=== PATIENT | male | born 1985 | race Caucasian/White ===

== ENCOUNTER 2025-04-17 01:18 | Emergency (ER) | payer MEDICAID, OTHER ==
[~2025-04-17] VITALS: Ht 177.8 cm; Wt 123.9 kg
[2025-04-17 01:39] VITALS: O2SAT 96
[2025-04-17 02:45] LABS: CLARITY URINE CLEAR (CLEAR); COLOR URINE YELLOW (YELLOW); GLUCOSE URINE NEGATIVE (NEGATIVE); KETONES URINE TRACE (NEGATIVE); LEUKOCYTE ESTERASE URINE NEGATIVE (NEGATIVE); NITRITE URINE NEGATIVE (NEGATIVE); OCCULT BLOOD URINE NEGATIVE (NEGATIVE); PH URINE 5.5 (4.5-8.0); PROTEIN URINE NEGATIVE (NEGATIVE); SPECIFIC GRAVITY URINE 1.010 (1.005-1.030); UROBILINOGEN URINE 0.2 E.U./dL (0.2-1.0)
[2025-04-17 02:53] LABS: *AMPHETAMINES SCREEN URINE NEGATIVE (NEGATIVE); *BARBITURATES SCREEN URINE NEGATIVE (NEGATIVE); *BENZODIAZEPINES SCREEN URINE PRESUMPTIVE POSITIVE (NEGATIVE); *COCAINE SCREEN URINE NEGATIVE (NEGATIVE); CANNABINOID URINE SCREEN PRESUMPTIVE POSITIVE (NEGATIVE); ECSTASY MDMA SCREEN URINE NEGATIVE (NEGATIVE); METHADONE URINE SCREEN NEGATIVE (NEGATIVE); OPIATES URINE SCREEN NEGATIVE (NEGATIVE); PHENCYCLIDINE URINE SCREEN NEGATIVE (NEGATIVE)
[2025-04-17 04:52] LABS: BASOPHILS % 1.8 % (0.0-2.0); EOSINOPHILS % 4.6 % (0.0-5.0); HEMATOCRIT. 36.5 % (42.0-52.0); HEMOGLOBIN. 12.3 g/dL (14.0-18.0); LYMPHOCYTES % 36.4 % (20.0-50.0); MEAN PLATELET VOLUME 7.7 fl (7.4-10.4); MONOCYTES % 10.6 % (2.0-8.0); NEUTROPHILS % 46.6 % (40.0-76.0); PLATELET 362 x1000/uL (130-400); RED BLOOD CELL COUNT 4.75 mill/uL (4.7-6.1); RED CELL DISTRIBUTION WIDTH 18.4 % (11.6-14.6)
[2025-04-17 05:07] LABS: CREATININE 1.0 mg/dL (0.6-1.3); UREA NITROGEN BLOOD 8 mg/dL (9-23)
[2025-04-17 05:08] LABS: ETHANOL BLOOD 277 mg/dL (<10)
[2025-04-17] MEDS: ONDANSETRON 4MG ODT PO ONE (08:50)
[2025-04-17 08:59] LABS: ASPARTATE AMINOTRANSFERASE 85 IU/L (<34); BILIRUBIN DIRECT < 0.1 mg/dL (<=3.0)
[2025-04-17 09:00] LABS: BILIRUBIN TOTAL 0.2 mg/dL (0.1-1.0); PROTEIN TOTAL 7.4 g/dL (6.0-8.3)
[2025-04-17] MEDS ORDERED: HYDROXYZINE 25MG TABLET PO PRN (09:00)
[2025-04-17] MEDS: LEVETIRACETAM 500MG TABLET PO SCH (09:03)
[2025-04-17] MEDS: OLANZAPINE 5MG TABLET PO SCH (09:03)
[2025-04-17] MEDS: IBUPROFEN 400MG TABLET PO ONE (14:45)
[2025-04-17] MEDS: TRAZODONE HCL 50MG TABLET PO SCH (21:54)
[2025-04-18] MEDS: ACETAMINOPHEN 325MG TABLET PO ONE ×2 (06:25→22:13)
[2025-04-19] MEDS: POTASSIUM CHLORIDE 20MEQ/PACKET PO ONE (00:25)
[2025-04-19 01:24] VITALS: BP 154/93; PULSE 74; RESP 20; TEMP 36.6; O2SAT 97
[2025-04-28] MEDS ORDERED: KEPP (12:06)
[2025-04-28] MEDS ORDERED: KEPP250 PO (12:06)
[2025-04-30] MEDS ORDERED: AMLO5TAB88 PO (14:54)
[2025-04-30] MEDS ORDERED: CHLO25CA11 MT (14:54)
== END 2025-04-19 01:50 ==
LOC: ER 01:18
DX: R45.851 Suicidal ideations (principal); F10.129 Alcohol abuse with intoxication, unspecified; F32.A Depression, unspecified; F25.9 Schizoaffective disorder, unspecified; E11.9 Type 2 diabetes mellitus without complications; I10 Essential (primary) hypertension; Z09 Encounter for follow-up examination after completed treatment for conditions other than malignant neoplasm; Z59.00 Homelessness unspecified; Z79.899 Other long term (current) drug therapy; Y90.9 Presence of alcohol in blood, level not specified
CPT/HCPCS: 80076; 80305; 80048; 81003; 80307 ×2; 80329 ×2; 80320; 83690; 85025; 36415 ×2; 93005; 99285; 87426; Q0162; G0480